=== PATIENT | female | born 1940 | race Caucasian/White ===

== ENCOUNTER 2021-09-14 15:01 | Emergency (ER) | payer MEDICARE, OTHER ==
[~2021-09-14] VITALS: Ht 152.4 cm; Wt 41.2 kg
--- OUTSIDE RECORDS SUMMARY | 2021-09-14 18:02 | XMS ---
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 Kandi has no Care Guidelines for this patient. Russell VISIT COUNT (12 MO.) 1 DENNIS Schulte TOTAL 1 NOTE: Visits indicate total known visits. ED/UCC VISIT TRACKING (12 MO.) 09/14/2021 15:03 DENNIS [facility] [place] TYPE: Emergency COMPLAINT: - L HIP/LEG PAIN INPATIENT VISIT TRACKING (12 MO.) No inpatient visits to display in this time frame [id number]
== END 2021-09-14 17:47 | disposition home or self-care (01) ==
LOC: ED 15:01
DX: S70.12XA Contusion of left thigh, initial encounter (principal); W19.XXXA Unspecified fall, initial encounter; I10 Essential (primary) hypertension
CPT/HCPCS: 73552; 99283-25

== ENCOUNTER 2022-01-10 12:18 | Emergency (ER) | payer MEDICARE, OTHER ==
[~2022-01-10] VITALS: Ht 152.4 cm; Wt 41.2 kg
--- OUTSIDE RECORDS SUMMARY | 2022-01-10 12:20 | XMS ---
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 E.Christel VISIT COUNT (12 MO.) 2 DENNIS Schulte TOTAL 2 NOTE: Visits indicate total known visits. ED/C VISIT TRACKING (12 MO.) 01/10/2022 12:19 DENNIS [facility] [place] TYPE: Emergency COMPLAINT: - FLUE SYMPTOMS 09/14/2021 15:03 DENNIS [facility] [place] TYPE: Emergency COMPLAINT: - L HIP/LEG PAIN DIAGNOSES: - Pain in left thigh - Essential (primary) hypertension - Contusion of left thigh, initial encounter - Unspecified fall, initial encounter INPATIENT VISIT TRACKING (12 MO.) No inpatient visits to display in this time frame [id number]
== END 2022-01-10 16:00 | disposition home or self-care (01) ==
LOC: ED 12:18
DX: U07.1 COVID-19 (principal); Z23 Encounter for immunization; I10 Essential (primary) hypertension
CPT/HCPCS: 71045; 96374; 99283-25; U0003